=== PATIENT | male | born 2000 | race Caucasian/White ===

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

== ENCOUNTER 2024-04-03 19:24 | Emergency (ER) | payer OTHER ==
[2024-04-03 19:33] VITALS: BP 106/56; PULSE 90; RESP 20; TEMP 98.5; BMI 22.8
[2024-04-03 20:53] LABS: BASO % 0.5 % (0-2.0); EOS % 2.2 % (0-4.5); HEMATOCRIT 44.4 % (35.4-49); HEMOGLOBIN 15.4 GM/dL (11.7-16.9); LYMPH % 27.8 % (8-40); MCHC 34.7 g/dl (32.0-35.9); MEAN CELL VOLUME 80.7 fl (80-96); MEAN PLT VOLUME 8.1 fl (7.5-11.1); MONO % 12.2 % (3.8-10.2); NEUT % 57.3 % (42.8-82.8); PLATELET COUNT 165 10^3/uL (134-434); RBC 5.51 M/mm3 (4.00-5.60); RDW 13.3 % (11.9-15.9); WHITE BLOOD COUNT 3.6 K/mm3 (4.0-10.0)
[2024-04-03] MEDS ORDERED: ONDANSETRON 4 MG TABLET PO ONE ×2 (20:57→21:03)
[2024-04-03] MEDS ORDERED: FAMOTIDINE 20 MG TABLET ONE ×2 (20:58→21:03)
[2024-04-03] MEDS ORDERED: MAG HYDROX/AL HYDROX/SIMETH 30 ML UNIT-DOSE CUP ONE (20:58)
[2024-04-03] MEDS ORDERED: ACETAMINOPHEN 500 MG TABLET (FP) ONE ×2 (20:58→21:03)
[2024-04-03] MEDS: MAG HYDROX/AL HYDROX/SIMETH 30 ML UNIT-DOSE CUP PO ONE (21:05)
[2024-04-03] MEDS: FAMOTIDINE 20 MG TABLET PO ONE (21:05)
[2024-04-03] MEDS: ONDANSETRON 4 MG TABLET PO ONE (21:06)
[2024-04-03] MEDS: ACETAMINOPHEN 500 MG TABLET (FP) PO ONE (21:06)
[2024-04-03] MEDS: LACTATED RINGERS SOLUTION 1000 ML INFUS.BAG IV ONE (21:07)
[2024-04-03] MEDS: ACETAMINOPHEN 1000 MG/100 ML BAG IVPB ONE (21:08)
[2024-04-03] MEDS: FAMOTIDINE 20 MG/50 ML IVPB 20 MG/50 ML MG IVPB ONE (21:08)
[2024-04-03] MEDS: ONDANSETRON 4 MG/2 ML VIAL IVPUSH ONE (21:08)
[2024-04-03 21:27] LABS: POTASSIUM 3.1 mmol/L (3.5-5.1)
[2024-04-03 21:29] LABS: ALBUMIN 3.6 g/dl (3.4-5.0); BLOOD UREA NITROGEN 9.2 mg/dL (7-18); CALCIUM 8.4 mg/dL (8.5-10.1); MAGNESIUM 1.8 mg/dL (1.8-2.4)
[2024-04-03 21:32] LABS: CREATININE 0.7 mg/dL (0.55-1.3)
[2024-04-03 21:34] LABS: BILIRUBIN,TOTAL 0.6 mg/dL (0.2-1); TOT PROT 7.1 g/dl (6.4-8.2)
[2024-04-03] MEDS ORDERED: POTASSIUM CHLORIDE TABS 20 MEQ TABLET.ER (FP) PO ONE (21:48)
[2024-04-03] MEDS: POTASSIUM CHLORIDE TABS 20 MEQ TABLET.ER (FP) PO ONE (21:53)
== END 2024-04-03 21:59 | disposition home or self-care (01) ==
LOC: JER 19:24
DX: R19.7 Diarrhea, unspecified (principal); R11.0 Nausea; R10.9 Unspecified abdominal pain; Z20.822 Contact with and (suspected) exposure to COVID-19
CPT/HCPCS: 0241U-QW; 36415; 80053; 83735; 85025; 99283-25